=== PATIENT | male | born 1960 | race Caucasian/White ===

== ENCOUNTER 2018-12-19 11:01 | Emergency (ER) | payer MEDICAID ==
[~2018-12-19] VITALS: Ht 175.3 cm; Wt 89.0 kg
[~2018-12-19 11:01] MED LIST: LISI1TAB5 PO; PRAV20TA2 PO; Will bring list DOS
[2018-12-19] MEDS ORDERED: METH750T2 PO (11:59)
[2018-12-19] MEDS ORDERED: OXYC-307 PO (11:59)
[2018-12-19 12:00] LABS: BASOPHILS # (AUTO) 0.01 x10^3/uL (0-0.1); BASOPHILS % (AUTO) 0 % (0-1); EOSINOPHILS % (AUTO) 0 % (1-7); LYMPHOCYTES # (AUTO) 1.08 x10^3/uL (1-3.4); LYMPHOCYTES % (AUTO) 10 % (22-44); MD NO; MEAN CORPUSCULAR HEMOGLOBIN 29.1 pg (27.5-34.5); MEAN CORPUSCULAR HGB CONC 33.5 g/dL (33.2-36.2); MEAN CORPUSCULAR VOLUME 86.9 fL (81-97); MEAN PLATELET VOLUME 7.9 fL (7.4-10.4); MONOCYTES # (AUTO) 0.19 x10^3/uL (0.2-0.8); MONOCYTES % (AUTO) 2 % (2-9); NEUTROPHILS # (AUTO) 9.13 x10^3/uL (1.8-6.8); NEUTROPHILS % (AUTO) 88 % (42-75); PLATELET COUNT 614 x10^3/uL (130-400); RED BLOOD COUNT 5.28 x10^6/uL (4.38-5.82); RED CELL DISTRIBUTION WIDTH 13.9 % (9.4-14.8)
[2018-12-19] MEDS ORDERED: PRED20TA PO (12:00)
[2018-12-19] MEDS ORDERED: NALO25TA PO (12:02)
[2018-12-19] MEDS ORDERED: PRAV20TA2 PO (12:03)
[2018-12-19] MEDS ORDERED: LISI1TAB7 PO (12:03)
[2018-12-19] MEDS ORDERED: ALBU18HF INH (12:04)
[2018-12-19] MEDS ORDERED: GLUC1TAB27 PO (12:07)
[2018-12-19] MEDS ORDERED: OMEG1CAP23 PO (12:07)
[2018-12-19] MEDS ORDERED: MULT-516 PO (12:08)
[2018-12-19] MEDS ORDERED: VITA1CAP PO (12:08)
[2018-12-19 12:10] LABS: ALBUMIN 2.4 g/dL (3.4-5.0); ANION GAP 9 mmol/L (5-15); CALCIUM 8.7 mg/dL (8.5-10.1); CHLORIDE 87 mmol/L (98-107)
[2018-12-19 12:12] LABS: CREATININE 1.51 mg/dL (0.7-1.3)
--- NOTE | 2018-12-19 12:15 | NUR ---
md to bedside for assessment. new orders received. vss. no needs at this time.
[2018-12-19] MEDS ORDERED: SODIUM CHLORIDE 0.9% 1,000ML IVBOLUS ONE ×2 (12:30→14:00)
[2018-12-19 12:44] LABS: PH, VENOUS 7.413 pH (7.320-7.420)
[2018-12-19 12:46] LABS: FIO2 ROOM AIR %
[2018-12-19 13:22] LABS: ACETONE, SERUM Trace (10mg/dL) mg/dL (Negative)
--- NOTE | 2018-12-19 13:50 | NUR ---
pt's glucose remains high after 1L bolus. md notified. new orders received. vss. call light within reach. no needs at this time.
[2018-12-19] MEDS ORDERED: INSULIN REGULAR 100 UNITS/ML, 3ML VIAL ONE ×2 (14:52→15:57)
[2018-12-19] MEDS ORDERED: INSULIN REGULAR 100 UNITS/ML, 3ML VIAL IVPush ONE ×2 (15:00→16:00)
--- NOTE | 2018-12-19 15:06 | NUR ---
pt's glucose remains high after 2L boluses. orders fo rinsulin received and administered. will continue to monitor. vss. call light wthin reach.
--- NOTE | 2018-12-19 15:39 | NUR ---
blood glucose remains high after 2L bolus and 10 units reg insulin. md will be notified. call light withing reach. vss. no needs at this time.
[2018-12-19 15:40] VITALS: BP 140/84
--- NOTE | 2018-12-19 15:53 | NUR ---
new orders received at this time.
[2018-12-19] MEDS ORDERED: metFORMIN 500 MG TABLET PO ONE (16:00)
--- NOTE | 2018-12-19 16:26 | NUR ---
pt glucose checked again. md notified fo result. vss. no needs at this time. call light within reach.
== END 2018-12-19 16:51 | disposition home or self-care (01) ==
LOC: ED 13:16
DX: E11.65 Type 2 diabetes mellitus with hyperglycemia (principal); H65.93 Unspecified nonsuppurative otitis media, bilateral; J18.8 Other pneumonia, unspecified organism
CPT/HCPCS: 36415; 71046; 80048; 82010; 82040; 82803; 82962; 83735; 84100; 85025; 96361; 96374; 99284; J7030

== ENCOUNTER 2018-12-23 10:36 | Inpatient (IN) | payer MEDICAID ==
[~2018-12-23] VITALS: Ht 175.3 cm; Wt 89.8 kg
[~2018-12-23 10:36] MED LIST changes: +ALBU18HF INH; +GLUC1TAB27 PO; +LISI1TAB7 PO; +METH750T2 PO; +MULT-516 PO; +NALO25TA PO; +OMEG1CAP23 PO; +OXYC-307 PO; +PRED20TA PO; +VITA1CAP PO
[2018-12-23] MEDS ORDERED: SODIUM CHLORIDE FLUSH 10ML SYR IVF ONE ×2 (11:30→13:00)
[2018-12-23 11:52] LABS: BASOPHILS # (AUTO) 0.08 x10^3/uL (0-0.1); BASOPHILS % (AUTO) 1 % (0-1); EOSINOPHILS # (AUTO) 0.02 x10^3/uL (0-0.4); EOSINOPHILS % (AUTO) 0 % (1-7); LYMPHOCYTES % (AUTO) 22 % (22-44); MD NO; MEAN CORPUSCULAR HEMOGLOBIN 29.4 pg (27.5-34.5); MEAN CORPUSCULAR HGB CONC 33.9 g/dL (33.2-36.2); MEAN CORPUSCULAR VOLUME 86.8 fL (81-97); MEAN PLATELET VOLUME 7.9 fL (7.4-10.4); MONOCYTES % (AUTO) 6 % (2-9); NEUTROPHILS # (AUTO) 7.73 x10^3/uL (1.8-6.8); NEUTROPHILS % (AUTO) 71 % (42-75); PLATELET COUNT 539 x10^3/uL (130-400); RED BLOOD COUNT 5.13 x10^6/uL (4.38-5.82); RED CELL DISTRIBUTION WIDTH 13.3 % (9.4-14.8)
[2018-12-23 12:00] LABS: ALBUMIN 2.8 g/dL (3.4-5.0); ANION GAP 8 mmol/L (5-15); CALCIUM 8.8 mg/dL (8.5-10.1); CHLORIDE 92 mmol/L (98-107)
--- NOTE | 2018-12-23 12:07 | NUR ---
PT WALKED BACK FROM LOBBY TO ROOM. NAD NOTED. SKIN PWD. RESP EVEN AND EQAUL. PT ABLE TO SPEAK IN FULL 7-10 WORD SENTENCES W/O DIFFICULTY. AT BEDSIDE. AIMEE VALENCIA AT BEDSIDE FOR EVAL AT THIS TIME.
[2018-12-23] MEDS ORDERED: METF500T17 PO (12:12)
[2018-12-23] MEDS ORDERED: FEXO60TA9 PO (12:12)
[2018-12-23 12:13] LABS: ALANINE AMINOTRANSFERASE 31 U/L (12-78); ALKALINE PHOSPHATASE 108 U/L (45-117); BILIRUBIN,TOTAL 0.8 mg/dL (0.2-1.0); CREATININE 1.21 mg/dL (0.7-1.3)
[2018-12-23] MEDS ORDERED: CEFTRIAXONE PMX 1GM/50ML 50 ML IVPB ONE (13:00)
[2018-12-23] MEDS ORDERED: AZITHROMYCIN 500 MG in SODIUM CHLORIDE 0.9% 250 ML IVPB ONE (13:00)
[2018-12-23] MEDS ORDERED: CEFTRIAXONE PMX 1GM/50ML 50 ML ONE (13:07)
[2018-12-23] MEDS ORDERED: GUAIFENESIN/COD200MG-20MG/10ML LIQUID PO PRN (14:30)
[2018-12-23] MEDS ORDERED: ACETAMINOPHEN 325 MG TABLET PO PRN (14:30)
[2018-12-23] MEDS ORDERED: TEMPLATE NON-FORMULARY MED. (Naloxegol Oxalate (Movantik) 25 MG) PO PRN (14:30)
[2018-12-23] MEDS ORDERED: METHOCARBAMOL 500 MG TABLET PO PRN (14:30)
[2018-12-23] MEDS ORDERED: hydrALAzine 20 MG/ML, 1ML IVPush PRN (14:30)
[2018-12-23] MEDS: CEFTRIAXONE PMX 2GM/50ML 50 ML IV SCH (14:30)
[2018-12-23] MEDS ORDERED: ENOXAPARIN 40 MG/0.4 ML ONE (15:43)
[2018-12-23] MEDS: SODIUM CHLORIDE 0.9% 1,000 ML IV SCH (15:48)
[2018-12-23] MEDS: ENOXAPARIN 40 MG/0.4 ML SQ SCH (15:48)
--- NOTE | 2018-12-23 16:00 | NUR ---
PLACED PATIENT ON HOSPITAL BED FOR COMFORT.
--- NOTE | 2018-12-23 16:17 | NUR ---
[facility] TELEHPHONE HAND-OFF REPORT GIVEN TO NANDO HUSSEIN. PATIENT READY TO GO TO HOSPITAL ROOM.
[2018-12-23 16:58] VITALS: BP 115/77
[2018-12-23 17:52] LABS: HEMOGLOBIN A1C 8.4 % (4.2-6.3)
[2018-12-23 19:26] VITALS: BP 132/90
[2018-12-23] MEDS: PRAVASTATIN 20 MG TABLET PO SCH (20:47)
[2018-12-23] MEDS: OXYcodone/APAP 10/325MG TABLET PO PRN (21:19)
[2018-12-24] MEDS: SODIUM CHLORIDE 0.9% 1,000 ML IV SCH ×4 (01:17→21:07)
[2018-12-24 01:21] VITALS: BP 119/73
[2018-12-24] MEDS: OXYcodone/APAP 10/325MG TABLET PO PRN ×4 (02:27→18:04)
[2018-12-24 06:01] LABS: BASOPHILS # (AUTO) 0.04 x10^3/uL (0-0.1); BASOPHILS % (AUTO) 1 % (0-1); EOSINOPHILS # (AUTO) 0.04 x10^3/uL (0-0.4); EOSINOPHILS % (AUTO) 1 % (1-7); LYMPHOCYTES # (AUTO) 2.38 x10^3/uL (1-3.4); LYMPHOCYTES % (AUTO) 44 % (22-44); MD NO; MEAN CORPUSCULAR HEMOGLOBIN 29.3 pg (27.5-34.5); MEAN CORPUSCULAR VOLUME 86.2 fL (81-97); MEAN PLATELET VOLUME 7.9 fL (7.4-10.4); MONOCYTES # (AUTO) 0.45 x10^3/uL (0.2-0.8); MONOCYTES % (AUTO) 8 % (2-9); NEUTROPHILS # (AUTO) 2.48 x10^3/uL (1.8-6.8); NEUTROPHILS % (AUTO) 46 % (42-75); PLATELET COUNT 341 x10^3/uL (130-400); RED BLOOD COUNT 4.35 x10^6/uL (4.38-5.82)
[2018-12-24 06:03] LABS: ALANINE AMINOTRANSFERASE 25 U/L (12-78); ALBUMIN 2.3 g/dL (3.4-5.0); ANION GAP 4 mmol/L (5-15); CALCIUM 7.9 mg/dL (8.5-10.1); CHLORIDE 101 mmol/L (98-107)
[2018-12-24 06:06] LABS: ALKALINE PHOSPHATASE 84 U/L (45-117); BILIRUBIN,TOTAL 0.6 mg/dL (0.2-1.0); CHOL/HDL RATIO 5.3; CHOLESTEROL, TOTAL 128 mg/dL (140-239); CREATININE 0.99 mg/dL (0.7-1.3); HDL CHOL % 19 % (26-37); HDL CHOLESTEROL (DIRECT) 24 mg/dL (40-60); LDL CHOLESTEROL,CALCULATED 68 mg/dL (54-169); LDL/HDL RATIO 2.8 (0.5-3.0); TOTAL PROTEIN 6.7 g/dL (6.4-8.2); TRIGLYCERIDES 180 mg/dL (50-200); VLDL CHOLESTEROL 36 mg/dL (0-25)
[2018-12-24] MEDS ORDERED: DEXTROSE 4 GM TAB.CHEW PO PRN (07:00)
[2018-12-24] MEDS ORDERED: GLUCAGON 1 MG IM PRN (07:00)
[2018-12-24] MEDS ORDERED: DEXTROSE 50%, 50ML SYRINGE IVPush PRN (07:00)
[2018-12-24 07:39] VITALS: BP 122/76
[2018-12-24] MEDS: INSULIN LISPRO 100 UNITS/ML, PEN SQ-INSULIN SCH ×5 (08:00→21:07)
[2018-12-24] MEDS: AZITHROMYCIN 500 MG TABLET PO SCH (08:21)
[2018-12-24] MEDS: OMEGA-3/FISH OIL CAPSULE PO SCH (08:21)
[2018-12-24] MEDS: SODIUM CHLORIDE FLUSH 10ML SYR IVF SCH ×2 (09:00→21:00)
[2018-12-24] MEDS: INSULIN GLARGINE 100 UNITS/ML, PEN SQ-INSULIN SCH (09:30)
[2018-12-24 13:12] VITALS: BP 164/88
[2018-12-24] MEDS: ENOXAPARIN 40 MG/0.4 ML SQ SCH (14:30)
[2018-12-24] MEDS: CEFTRIAXONE PMX 2GM/50ML 50 ML IV SCH (14:54)
[2018-12-24] MEDS ORDERED: LISINOPRIL 10 MG TABLET PO ONE (17:30)
[2018-12-24] MEDS ORDERED: HYDROCHLOROTHIAZIDE 25 MG TABLET PO ONE (17:30)
[2018-12-24 19:44] VITALS: BP 130/82
[2018-12-24] MEDS: PRAVASTATIN 20 MG TABLET PO SCH (21:06)
[2018-12-25 02:00] VITALS: BP 134/85
[2018-12-25] MEDS: OXYcodone/APAP 10/325MG TABLET PO PRN ×4 (02:06→21:43)
[2018-12-25] MEDS: SODIUM CHLORIDE 0.9% 1,000 ML IV SCH ×3 (03:53→18:15)
[2018-12-25 07:36] VITALS: BP 125/80
[2018-12-25 07:38] LABS: ALBUMIN 2.4 g/dL (3.4-5.0); ANION GAP 4 mmol/L (5-15); CALCIUM 7.9 mg/dL (8.5-10.1); CHLORIDE 106 mmol/L (98-107); CREATININE 0.92 mg/dL (0.7-1.3)
[2018-12-25] MEDS: INSULIN LISPRO 100 UNITS/ML, PEN SQ-INSULIN SCH ×5 (08:00→21:43)
[2018-12-25] MEDS: AZITHROMYCIN 500 MG TABLET PO SCH (08:12)
[2018-12-25] MEDS: SODIUM CHLORIDE FLUSH 10ML SYR IVF SCH ×2 (08:12→20:49)
[2018-12-25] MEDS: LISINOPRIL 20 MG TABLET PO SCH (08:12)
[2018-12-25] MEDS: OMEGA-3/FISH OIL CAPSULE PO SCH (08:12)
[2018-12-25] MEDS: INSULIN GLARGINE 100 UNITS/ML, PEN SQ-INSULIN SCH (08:12)
[2018-12-25] MEDS ORDERED: METF500T17 PO (10:58)
[2018-12-25] MEDS ORDERED: SITA100T PO (10:58)
[2018-12-25] MEDS ORDERED: CEFP200T PO (10:58)
[2018-12-25] MEDS ORDERED: ATOR40TA78 PO (10:58)
[2018-12-25] MEDS ORDERED: AZIT500T5 PO (10:58)
[2018-12-25] MEDS ORDERED: GLUC1KIT INJ (10:58)
[2018-12-25] MEDS: ENOXAPARIN 40 MG/0.4 ML SQ SCH (13:51)
[2018-12-25 14:00] VITALS: BP 145/87
[2018-12-25] MEDS: CEFTRIAXONE PMX 2GM/50ML 50 ML IV SCH (14:46)
[2018-12-25] MEDS: metFORMIN 500 MG TABLET PO SCH (18:17)
[2018-12-25 18:51] VITALS: BP 131/74
[2018-12-25] MEDS: PRAVASTATIN 20 MG TABLET PO SCH (20:49)
[2018-12-26 00:59] VITALS: BP 135/89
[2018-12-26] MEDS: SODIUM CHLORIDE 0.9% 1,000 ML IV SCH ×2 (01:00→08:19)
[2018-12-26] MEDS: OXYcodone/APAP 10/325MG TABLET PO PRN (04:11)
[2018-12-26 06:53] VITALS: BP 148/87
[2018-12-26] MEDS: INSULIN GLARGINE 100 UNITS/ML, PEN SQ-INSULIN SCH (08:10)
[2018-12-26] MEDS: metFORMIN 500 MG TABLET PO SCH (08:14)
[2018-12-26] MEDS: AZITHROMYCIN 500 MG TABLET PO SCH (08:14)
[2018-12-26] MEDS: LISINOPRIL 20 MG TABLET PO SCH (08:15)
[2018-12-26] MEDS: INSULIN LISPRO 100 UNITS/ML, PEN SQ-INSULIN SCH ×2 (08:15→08:16)
[2018-12-26] MEDS: OMEGA-3/FISH OIL CAPSULE PO SCH (08:15)
[2018-12-26] MEDS: SODIUM CHLORIDE FLUSH 10ML SYR IVF SCH (08:18)
== END 2018-12-26 10:09 | disposition home or self-care (01) | DRG 637 ==
LOC: ED 12:25 → EDIP 12:58 → 4EST 16:52 → 4WST 12-25 19:50
PROVIDERS: ADMIT Internal Medicine; ATTEND Internal Medicine
DX: E11.65 Type 2 diabetes mellitus with hyperglycemia (principal); J15.9 Unspecified bacterial pneumonia; E87.1 Hypo-osmolality and hyponatremia; E78.5 Hyperlipidemia, unspecified; E86.0 Dehydration; I10 Essential (primary) hypertension; T38.0X5A Adverse effect of glucocorticoids and synthetic analogues, initial encounter; Z79.4 Long term (current) use of insulin; Z87.01 Personal history of pneumonia (recurrent); Z87.891 Personal history of nicotine dependence
CPT/HCPCS: 36415; 71046; 80053; 80061; 80069; 82962; 83036; 83605; 85025; 87040; 96365; 96367; G0378; J0456; J0696; J1650; J1815; J7030; J7050

== ENCOUNTER → 2020-01-08 | Outpatient (CLI) | payer OTHER ==
[~2020-01-08] MED LIST changes: +ATOR40TA78 PO; +AZIT500T10 PO; +CEFP200T PO; +FEXO60TA9 PO; +GLUC1KIT INJ; +LISI1TAB19 PO; +LISI1TAB20 PO; -LISI1TAB5 PO; -LISI1TAB7 PO; +METF500T17 PO; +SITA100T PO
== END | disposition home or self-care (01) ==
LOC: RAD 13:40
PROVIDERS: ATTEND Chiropractor Independent Medical Examiner
DX: M25.511 Pain in right shoulder (principal); M25.512 Pain in left shoulder

== ENCOUNTER 2020-05-22 12:08 | Day surgery (SDC) | payer MEDICAID ==
[~2020-05-22] VITALS: Ht 175.3 cm; Wt 95.4 kg
[~2020-05-22 12:08] MED LIST changes: +ASCO10004 PO; +B CO1TAB14 PO; +BUPIVACAINE/PF-EPI 0.25% 1:200K ONE; +oxycodone PO
[2020-05-22] MEDS ORDERED: LACTATED RINGERS 1,000 ML IV SCH (12:51)
[2020-05-22 13:00] VITALS: BP 191/95
[2020-05-22] MEDS ORDERED: CHLORHEXIDINE 15 ML UDC MM ONE (13:00)
[2020-05-22 13:40] VITALS: BP 156/96
[2020-05-22] MEDS ORDERED: FENTANYL PF 100 MCG/2ML ONE ×2 (13:41→14:45)
[2020-05-22] MEDS ORDERED: MIDAZOLAM 1 MG/ML, 2ML ONE (13:41)
[2020-05-22] MEDS ORDERED: hydrALAzine 20 MG/ML, 1ML ONE (15:32)
[2020-05-22] MEDS ORDERED: PROPOFOL 10 MG/ML, 20ML ONE (15:32)
[2020-05-22] MEDS ORDERED: DEXAMETHASONE 4 MG/ML, 1ML ONE (15:32)
[2020-05-22] MEDS ORDERED: ONDANSETRON 2MG/ML, 2ML ONE ×2 (15:32→17:26)
[2020-05-22] MEDS ORDERED: EPHEDRINE 50 MG/ML, 1ML ONE (15:32)
[2020-05-22] MEDS ORDERED: CEFAZOLIN 1,000 MG ONE (15:32)
[2020-05-22] MEDS ORDERED: LABETALOL 5MG/ML, 20ML IV PRN (16:00)
[2020-05-22] MEDS ORDERED: FENTANYL PF 100 MCG/2ML IV PRN (16:00)
[2020-05-22] MEDS ORDERED: ACETAMINOPHEN 325 MG TABLET PO PRN (16:00)
[2020-05-22] MEDS ORDERED: HYDROmorphone 1 MG/ML, 1ML INJ IVPush PRN (16:00)
[2020-05-22] MEDS ORDERED: hydrALAzine 20 MG/ML, 1ML IV PRN (16:00)
[2020-05-22] MEDS ORDERED: OXYcodone 5 MG/5 ML ORAL.SOL UDC PO PRN (16:00)
[2020-05-22] MEDS ORDERED: ONDANSETRON 2MG/ML, 2ML IVPush PRN (16:00)
[2020-05-22] MEDS ORDERED: PROMETHAZINE 25 MG/ML, 1ML ONE (17:39)
[2020-05-22] MEDS ORDERED: PROMETHAZINE 25 MG/ML, 1ML IVPush PRN (18:00)
[2020-05-22] MEDS ORDERED: OXYC10TA6 PO (20:15)
[2020-05-22] MEDS ORDERED: ONDA4TAB7 PO (20:33)
[2020-05-22] MEDS ORDERED: OXYC5CAP2 PO (20:33)
== END 2020-05-22 21:03 | disposition home or self-care (01) ==
LOC: OUT 12:08 → 4NE 18:25 → OUT 21:03
PROVIDERS: ATTEND Orthopaedic Surgery
DX: S46.011A Strain of muscle(s) and tendon(s) of the rotator cuff of right shoulder, initial encounter (principal); Z11.59 Encounter for screening for other viral diseases; S46.012A Strain of muscle(s) and tendon(s) of the rotator cuff of left shoulder, initial encounter; S46.111A Strain of muscle, fascia and tendon of long head of biceps, right arm, initial encounter; S43.431A Superior glenoid labrum lesion of right shoulder, initial encounter; M75.41 Impingement syndrome of right shoulder; M75.22 Bicipital tendinitis, left shoulder; M75.21 Bicipital tendinitis, right shoulder; I10 Essential (primary) hypertension; E78.5 Hyperlipidemia, unspecified; Z79.891 Long term (current) use of opiate analgesic; Z79.899 Other long term (current) drug therapy; Z82.61 Family history of arthritis; X58.XXXA Exposure to other specified factors, initial encounter; Y93.89 Activity, other specified; Y92.89 Other specified places as the place of occurrence of the external cause; Y99.8 Other external cause status
CPT/HCPCS: 29823; 29826; 29827; 29828; 36415; 64415; 87635; C1713; J0360; J0690; J1100; J2250; J2405; J2550; J2704; J3010; J7120; G0378

== ENCOUNTER 2020-09-11 05:13 | Day surgery (SDC) | payer MEDICAID ==
[~2020-09-11] VITALS: Ht 175.3 cm; Wt 101.6 kg
[~2020-09-11 05:13] MED LIST changes: +ASCO100018 PO; -ASCO10004 PO; -BUPIVACAINE/PF-EPI 0.25% 1:200K ONE; -LISI1TAB19 PO; +LISI1TAB39 PO; -NALO25TA PO; +NALO25TA4 PO; +ONDA4TAB7 PO; +OXYC10TA6 PO; +OXYC5CAP2 PO
[2020-09-11] MEDS ORDERED: IBUP-1223 PO (05:52)
[2020-09-11] MEDS ORDERED: OXYC10TA6 PO (05:52)
[2020-09-11 05:57] VITALS: BP 151/94
[2020-09-11] MEDS ORDERED: LACTATED RINGERS 1,000 ML IV SCH (06:00)
[2020-09-11] MEDS ORDERED: CHLORHEXIDINE 15 ML UDC MM ONE (06:00)
[2020-09-11] MEDS ORDERED: BUPIVACAINE/PF 0.25% ONE (06:18)
[2020-09-11] MEDS ORDERED: EPINEPHRINE 1 MG/ML, 1ML ONE (06:18)
[2020-09-11] MEDS ORDERED: MIDAZOLAM 1 MG/ML, 2ML ONE (06:40)
[2020-09-11] MEDS ORDERED: FENTANYL PF 100 MCG/2ML ONE (06:40)
[2020-09-11 06:56] LABS: ALANINE AMINOTRANSFERASE 65 U/L (12-78); ALBUMIN 4.1 g/dL (3.4-5.0); ANION GAP 5 mmol/L (5-15); CALCIUM 9.1 mg/dL (8.5-10.1); CHLORIDE 108 mmol/L (98-107); CREATININE 0.98 mg/dL (0.7-1.3)
[2020-09-11 06:58] LABS: ALKALINE PHOSPHATASE 77 U/L (45-117); BILIRUBIN,TOTAL 0.7 mg/dL (0.2-1.0); TOTAL PROTEIN 7.6 g/dL (6.4-8.2)
[2020-09-11] MEDS ORDERED: PHENYLEPHRINE 10 MG/ML ONE (07:00)
[2020-09-11] MEDS ORDERED: EPHEDRINE 50 MG/ML, 1ML ONE (07:00)
[2020-09-11] MEDS ORDERED: FENTANYL PF 100 MCG/2ML IV PRN (08:00)
[2020-09-11] MEDS ORDERED: ACETAMINOPHEN 325 MG TABLET PO PRN (08:00)
[2020-09-11] MEDS ORDERED: LABETALOL 5MG/ML, 20ML IV PRN (08:00)
[2020-09-11] MEDS ORDERED: LORazepam 2 MG/ML, 1ML IVPush PRN (08:00)
[2020-09-11] MEDS ORDERED: MEPERIDINE/PF 25MG/0.5ML IVPush PRN (08:00)
[2020-09-11] MEDS ORDERED: OXYcodone 5 MG/5 ML ORAL.SOL UDC PO PRN (08:00)
[2020-09-11] MEDS ORDERED: HYDROmorphone 1 MG/ML, 1ML INJ IVPush PRN (08:00)
[2020-09-11] MEDS ORDERED: ALBUTEROL SULFATE 2.5 MG/3 ML NPPB PRN (08:00)
[2020-09-11] MEDS ORDERED: PROMETHAZINE 25 MG/ML, 1ML IVPush PRN (08:00)
[2020-09-11] MEDS ORDERED: hydrALAzine 20 MG/ML, 1ML IV PRN (08:00)
[2020-09-11] MEDS ORDERED: NEOSTIGMINE 1 MG/ML, 10ML ONE (08:14)
[2020-09-11] MEDS ORDERED: DEXAMETHASONE 4 MG/ML, 1ML ONE (08:14)
[2020-09-11] MEDS ORDERED: GLYCOPYRROLATE 0.2MG/1ML, 5ML ONE (08:14)
[2020-09-11] MEDS ORDERED: CEFAZOLIN 1,000 MG ONE (08:14)
[2020-09-11] MEDS ORDERED: ROCURONIUM 10MG/ML,5ML ONE (08:14)
[2020-09-11] MEDS ORDERED: PROPOFOL 10 MG/ML, 20ML ONE (08:14)
[2020-09-11] MEDS ORDERED: ONDANSETRON 2MG/ML, 2ML ONE (08:14)
== END 2020-09-11 10:35 | disposition home or self-care (01) ==
LOC: OUT 05:13
PROVIDERS: ATTEND Orthopaedic Surgery
DX: S46.012A Strain of muscle(s) and tendon(s) of the rotator cuff of left shoulder, initial encounter (principal); Z20.828 Contact with and (suspected) exposure to other viral communicable diseases; S46.112A Strain of muscle, fascia and tendon of long head of biceps, left arm, initial encounter; S43.432A Superior glenoid labrum lesion of left shoulder, initial encounter; M75.42 Impingement syndrome of left shoulder; G89.18 Other acute postprocedural pain; I10 Essential (primary) hypertension; E11.9 Type 2 diabetes mellitus without complications; E66.9 Obesity, unspecified; Z82.61 Family history of arthritis; X58.XXXA Exposure to other specified factors, initial encounter; Y93.89 Activity, other specified; Y92.89 Other specified places as the place of occurrence of the external cause; Y99.8 Other external cause status
CPT/HCPCS: 29823; 29826; 29828; 36415; 64415; 80053; 87635; C1713; J0171; J0690; J1100; J2250; J2370; J2405; J2704; J2710; J3010; J7120